=== PATIENT | male | born 1980 | race Caucasian/White ===

== ENCOUNTER 2019-09-04 09:16 | Observation (INO) | payer OTHER, SELFPAY ==
[2019-09-04] VITALS (9 sets, daily range): BP systolic 130–154; BP diastolic 84–104; PULSE 67–86; RESP 14–22; TEMP 36.6–37.2; O2SAT 97–100; BMI 30.2
--- NOTE | ~2019-09-04 | XR_ITS ---
EXAMINATION: XR chest 2V EXAM DATE: 09/04/2019 09:46 INDICATION: Mid chest pain. TECHNIQUE: Frontal and lateral projections of the chest obtained and reviewed. Comparison is made to prior examination from 09/18/2016. FINDINGS: The lungs are clear. There are no pleural effusions. The cardiomediastinal silhouette is within normal limits. There is no pneumothorax suspected. The bones and soft tissues are unremarkab le. IMPRESSION: Normal chest x-ray exam. Reviewed, dictated and finalized at location B. QUE REFINISHER IMPRESSION: Normal chest x-ray exam.
--- NOTE | ~2019-09-04 | NM_ITS ---
EXAMINATION: NM brian stress w perfusion DATE: 09/05/2019 10:45 INDICATION: Chest pain TECHNIQUE: Rest images were obtained following intravenous administration of 10.5 mCi Tc99m tetrofosm in (Myoview). The patient was infused intravenously with Lexiscan (Regadenoson). Then, 34.5 mCi Tc99m tetrofosmin (Myoview) was administered intravenously, and stress images were obtained in standard puckett pine position. Stress images were repeated in the prone position. Data was reconstructed into short a xis and horizontal and vertical long axis SPECT images. Gated SPECT images were also obtained. COMPARISON: None. FINDINGS: There is no definite reversible or fixed perfusion abnormality to suggest ischemia or infar ction. There is normal left ventricular chamber size, wall motion and ejection fraction. Left ventr icular ejection fraction measures 64%. IMPRESSION: 1. Normal myocardial perfusion at rest and during stress. 2. Left ventricular ejection fraction measuring 64%. Reviewed, dictated and finalized at location A. SHED YARN EXAMINER
--- NOTE | 2019-09-04 09:19 | ECG_ITS ---
Measurements Intervals [place] Rate: 72 P: 10 AL: 153 QRS: 41 QRSD: 111 T: 16 QT: 360 QTc: 397 Interpretive Statements SINUS RHYTHM INCOMPLETE RIGHT BUNDLE BRANCH BLOCK BORDERLINE ECG Electronically Signed On 09-04-2019 9:49:26 TUBE WRAPPER by Kristofer Dominguez D.O.
[2019-09-04 09:51] LABS: Basophils Percent Auto 0.5 % (0.2-1.2); Eosinophils Absolute Auto 0.1 K/mm3 (0-0.3); Eosinophils Percent Auto 1.8 % (0-4.4); Hematocrit 45.6 % (42.0-52.0); Hemoglobin 14.8 g/dL (14.0-18.0); Immature Granulocyte Absolute 0.03 K/mm3 (0.00-0.031); Immature Granulocyte Percent A 0.4 % (0-0.5); Lymphocytes Absolute Auto 2.15 K/mm3 (0.9-3.2); Lymphocytes Percent Auto 29.2 % (18.3-44.2); Mean Corpuscular HGB Conc 32.5 g/dl (32-36); Mean Corpuscular Hemoglobin 27.5 pg (26-34); Mean Corpuscular Volume 84.6 fl (80-100); Mean Platelet Volume 9.7 fl (7.4-10.4); Monocytes Absolute Auto 0.6 K/mm3 (0.1-0.6); Monocytes Percent Auto 7.6 % (2.6-8.5); Neutrophils Absolute Auto 4.5 K/mm3 (1.3-6.7); Neutrophils Percent Auto 60.5 % (45.5-73.1); Platelet Count Result 259 k/mm3 (150-375); Red Blood Count 5.39 M/mm3 (4.6-6.20); Red Cell Distribution Width 12.6 % (11.5-14.5); White Blood Count 7.4 K/mm3 (4.5-10.0)
--- NOTE | 2019-09-04 09:53 | ED.CHESTPAIN ---
HPI - Chest Pain General Chief Complaint: Shortness of Breath/Dyspnea Stated Complaint: SOB, CP X 3 DAYS Time Seen by Provider: 09/04/19 09:19 Source: patient and RN notes reviewed Mode of arrival: ambulatory Limitations: no limitations History of Present Illness HPI narrative: Pt is a 38 y/o male with a Hx of HTN, HLD, and DM II, who presents to the ED with c/o waxing and waning central chest pain starting 3 days ago. He notes that he has had nausea and SOB accompanying his pain, but denies any vomiting. Pt states that he recently quit smoking several months ago, but notes that he intermittently still smokes a few cigarettes per week. He notes that he hasn't taken any pain medications today for his symptoms. MD complaint: chest pain Onset (ago): day(s) (3) Timing of current episode: other (waxing and waning) Pain location: other (central chest) Associated symptoms: nausea and dyspnea Treatment prior to arrival: none Related Data Allergies Allergy/AdvReac Type Severity Reaction Status Date / Time No Known Allergies Allergy Verified 07/13/17 16:34 Review of Systems Review of Systems: All systems reviewed & are unremarkable except as noted in HPI and below Cardiovascular: Cardiovascular: Reports chest pain (central chest pain) Respiratory: Respiratory: Reports dyspnea Gastrointestinal: Gastrointestinal: Reports nausea and Denies vomiting PMFSH Past Medical History Medical History ADD (attention deficit disorder) Back pain Diabetes type 2, controlled GERD (gastroesophageal reflux disease) HLD (hyperlipidemia) HTN (hypertension) Otitis media Sinusitis Surgical History Surgical History H/O skin graft Social History Social History Smoking status: Current some day smoker Gender identity (if verbalized by the patient): Male Exam Narrative: Exam Narrative: APPEARANCE: No acute distress, nontoxic, resting in bed EYES: EOMI HEENT: Normocephalic, atraumatic, OMM RESPIRATORY: No respiratory distress Clear to auscultation bilaterally with no rhonchi wheezing or rales. CARDIOVASCULAR: Regular rate and rhythm without murmurs rubs or gallops. ABDOMINAL: Soft, nontender, nondistended, no rebound or guarding MUSCULOSKELETAl: Moves all extremities. No clubbing, cyanosis or edema. NEURO: Awake and alert. Following commands, speech normal, no focal deficits SKIN:: Warm, dry. No rashes lesions or abrasions PSYCHIATRIC: Normal affect/mood, Course Course Emergency Course: Patient states chest pain is resolved at this time Discussed with patient and family results of workup and diagnosis. Discussed need for admission. Patient and family understand and agree to current treatment plan Consultations Consultation #1: Discussed case with VINE PRUNER to Treating Plant PumperMojgan. [facility] Date: 09/04/19 Time: 11:38 Vital Signs Vital signs: Vital Signs Temperature 36.6 C 09/04/19 09:21 Pulse Rate 83 09/04/19 09:21 Respiratory Rate 18 09/04/19 09:21 Blood Pressure 145/94 H 09/04/19 09:21 Pulse Oximetry 98 09/04/19 09:21 Temperature 37.1 C 09/04/19 10:15 Pulse Rate 79 09/04/19 10:23 Respiratory Rate 22 H 09/04/19 10:15 Blood Pressure 136/100 H 09/04/19 10:15 Pulse Oximetry 99 09/04/19 10:23 MDM - Chest Pain Lab Data Result diagrams: 09/04/19 09:37 09/04/19 09:37 Labs: Lab Results 09/04/19 09/04/19 09/04/19 Range/Units 09:37 09:37 09:37 WBC 7.4 (4.5-10.0) K/mm3 RBC 5.39 (4.6-6.20) M/mm3 Hgb 14.8 (14.0-18.0) g/dL Hct 45.6 (42.0-52.0) % MCV 84.6 (80-100) fl MCH 27.5 (26-34) pg MCHC 32.5 (32-36) g/dl RDW 12.6 (11.5-14.5) % Plt Count 259 (150-375) k/mm3 MPV 9.7 (7.4-10.4) fl Immature Gran % (Auto) 0.4 (0-0.5) % Neut % (Auto) 60.5
[2019-09-04 10:02] LABS: INR 0.9; Prothrombin Time 12.3 Seconds (11.1-14.7)
[2019-09-04 10:03] LABS: Partial Thromboplastin Time 29.9 SECONDS (22.3-36.8)
[2019-09-04 10:26] LABS: D Dimer 0.27 ug/mL (<0.48)
[2019-09-04] MEDS: KETOROLAC 30 MG/ML VIAL (*BKC) IV PUSH (10:30)
[2019-09-04 10:31] LABS: Alanine Aminotransferase 29 U/L (4-50); Albumin Level 4.3 g/dL (3.5-5.1); Alkaline Phosphatase 81 U/L (38-126); Aspartate Amino Transferase 29 U/L (17-59); Bilirubin,Total 0.6 mg/dL (0.2-1.3); Blood Urea Nitrogen 15 mg/dL (9-20); Calcium 8.8 mg/dL (8.4-10.2); Carbon Dioxide 20 mmol/L (22-30); Chloride 103 mmol/L (98-107); Estimated CRCL calculation 124 ml/min; Estimated Glomerular Filt Rate > 60; Glucose 212 mg/dL (75-110); Potassium 4.1 mmol/L (3.4-5.0); Sodium 135 mmol/L (137-145); Troponin I < 0.012 ng/mL (0.000-0.034)
[2019-09-04] MEDS: ASPIRIN 81 MG CHEWABLE TABLET 324 MG PO (11:50)
[2019-09-04 13:23] LABS: Cholesterol 176 mg/dL (0-200); HDL Direct 25 mg/dL; Triglycerides 397 mg/dL (<150)
[2019-09-04 13:31] LABS: Troponin I < 0.012 ng/mL (0.000-0.034)
[2019-09-04 13:33] LABS: LDL Cholesterol Direct 88 mg/dL
--- NOTE | 2019-09-04 14:30 | PM.IMHP ---
H&P: HPI History of Present Illness Chief complaint: Chest Pain <Mojgan Joe APRN - Last Filed: 09/04/19 15:58> Narrative: José Miguel Snyder is a 38 year old male with a history of hyperlipidemia, hypertension and type 2 diabetes that presented to the emergency room for evaluation of chest discomfort, lightheadedness and shortness of breath. For the last 3 days he has had spells of lightheadedness with moderate to mild chest discomfort and shortness of breath. The lightheadedness comes randomly with associated nausea and a sensation that he needs to take in a deep breath. Prior to the lightheadedness he describes a sensation of body tingling and a chill sensation that lasts a few seconds. He describes the chest discomfort as a dull pressure throbbing sensation in the mid upper chest. The discomfort started 3 days ago. It waxes and wanes but never completely goes away. It has not kept him from sleeping. He does note that it does slightly get worse with exertion. The chest discomfort is associated with a headache that can last a few hours. At first he thought it was just a simple cold or the flu but his symptoms have not resolved. 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 <Mojgan Joe APRN - Last Filed: 09/04/19 15:58> Attending addendum: I have personally seen and examined the patient at bedside. Agree with above documentation and plan of care as outlined. Patient presents with numerous symptoms including cough/upper respiratory symptoms, intermittent lightheadedness, dizziness, waxing and waning chest pain occurring at rest occasion with activity and uncontrolled hypertension on presentation. Patient has ruled out for myocardial infarction with negative serial cardiac enzymes and unremarkable EKG without ischemic changes. Blood pressure elevated as he has not been taking lisinopril 20 mg daily. His primary care physician was contacted and they had not discontinued lisinopril as he originally thought. This has subsequently been restarted. Is feeling well this time, denies chest pain. States he feels better than he has in some time. Chest pain symptoms were worsening over the preceding 3 days prompting presentation. No syncope, lower extremity edema, orthopnea or PND. No bleeding. No focal weakness or balance. No falls. Examination: No apparent distress, alert and oriented x3, nonfocal neurologic examination, no JVD oral mucosa pink and moist Lungs clear to auscultation bilaterally no rales or wheezes. Respirations nonlabored, intermittent coughing with deep breathing noted. Abdominal exam was obese soft nontender nondistended positive breath sounds throughout Cardiac examination regular rate and rhythm normal S1-S2 no murmurs clicks gallops rubs S3 or S4 Lower extremities no edema clubbing or cyanosis extremities warm well perfused scars over right lower extremity Vascular carotid upstrokes 2+ radial pulses 2+ dorsalis pedis pulses 2+ equal Neurologic nonfocal cranial nerves 2-12 grossly intact Psychiatric: mood calm and appropriate although somewhat anxious Plan of care: Resume antihypertensives. Monitor BP. Observation overnight. NPO after midnight. Lexiscan nuclear perfusion stress test to assess for myocardial ischemia given chest pain, risk factors including hypertension, diabetes mellitus, dyslipidemia. Symptoms most likely related to uncontrolled hypertension, however, will assess for myocardial ischemia prior to discharge. Patient and verbalized understanding and agreed with plan of care. Very appreciative of plan as outlined. If stress test unremarkable patient will be discharged home in stable and improved condition to follow up with his primary care physician in the next 1-2 weeks. <Delmer Keene MD - Last Filed: 09/04/19 16:36> Review of Systems Constitutional: Constitutional: Reports chills, Reports headache(s) (Associated with chest discomfort
--- NOTE | 2019-09-04 14:42 | ECG_ITS ---
Measurements Intervals [place] Rate: 65 P: 4 AK: 158 QRS: 51 QRSD: 101 T: 14 QT: 383 QTc: 401 Interpretive Statements SINUS RHYTHM INCOMPLETE RIGHT BUNDLE BRANCH BLOCK BORDERLINE ECG Electronically Signed On 09-04-2019 14:35:16 THEOLOGY TEACHER by Kristofer Dominguez D.O.
[2019-09-04] MEDS: lisinopriL 20 MG TABLET PO (14:46)
[2019-09-04 16:04] LABS: Troponin I < 0.012 ng/mL (0.000-0.034)
--- NOTE | 2019-09-04 17:42 | ECG_ITS ---
Measurements Intervals [place] Rate: 68 P: -5 MA: 148 QRS: 49 QRSD: 100 T: 14 QT: 382 QTc: 407 Interpretive Statements SINUS RHYTHM INCOMPLETE RIGHT BUNDLE BRANCH BLOCK BORDERLINE ECG Electronically Signed On 09-04-2019 15:43:14 ELEVATOR ERECTOR HELPER by Kristofer Dominguez D.O.
[2019-09-04] MEDS: PRAVASTATIN SODIUM 10 MG TABLET PO (22:09)
[2019-09-05] VITALS: BP 136/89; PULSE 65; RESP 16; TEMP 36.9; O2SAT 99
[2019-09-05 02:00] VITALS: PULSE 76
[2019-09-05 04:00] VITALS: BP 134/70; PULSE 64; PULSE 67; RESP 13; TEMP 36.7; O2SAT 99
[2019-09-05 08:00] VITALS: BP 145/89; PULSE 70; RESP 14; O2SAT 100
--- NOTE | 2019-09-05 08:30 | EST_ITS ---
Patient Info Name: José Miguel Snyder Age: 38 years : 1980 Gender: Male Ht: 66 in Wt: 187 lbs BSA: 2.01 m2 Heart Rhythm: Sinus Rhythm Exam Date: 09/05/2019 8:39 AM Exam Location: [facility] Stress Patient Status: Inpatient Admit Date: 09/04/2019 Staff Ordering Physician: Mojgan Joe APRN Attending Provider: Iván Pina MD Nurse: Mojgan Joe, ANP, ACNP-BC Exam Type: CA stress brian w NM Study Info Indications R07.89 - Other chest pain A regadenoson stress test was performed. Summary 1. No abnormal ST/T wave changes with exercise. 2. No arrhythmias were observed during the examination. 3. No chest discomfort with stress test. 4. Please correlate with nuclear medicine images, reported separately. Protocol: Lexiscan Stress ECG Details Stage: REST Duration (min): 3 min : 29 sec HR (bpm): 71 SBP (mmHg): 128 DBP (mmHg): 85 Stage: REST Duration (min): 11 min : 23 sec HR (bpm): 78 SBP (mmHg): 128 DBP (mmHg): 85 Stage: STAGE 1 Duration (min): 0 min : 59 sec HR (bpm): 121 SBP (mmHg): 129 DBP (mmHg): 86 Stage: RECOVERY Duration (min): 1 min : 0 sec HR (bpm): 103 SBP (mmHg): 135 DBP (mmHg): 83 Stage: RECOVERY Duration (min): 2 min : 0 sec HR (bpm): 86 SBP (mmHg): 135 DBP (mmHg): 83 Stage: RECOVERY Duration (min): 3 min : 0 sec HR (bpm): 84 SBP (mmHg): 124 DBP (mmHg): 79 Stage: RECOVERY Duration (min): 3 min : 5 sec HR (bpm): 83 SBP (mmHg): 124 DBP (mmHg): 79 Rest HR: 78 bpm Peak HR: 124 bpm Rest Sys BP: 128 mmHg Peak Sys BP: 135 mmHg Max Pred HR: 180 bpm % Max Pred HR: 69 % Target HR: 153 bpm Max RPP: 16,740 bpm*mmHg Total Time: 1 min : 0 sec Rest Ray BP: 85 mmHg Peak Ray BP: 83 mmHg Total Dose: 0.4 mg Resting ECG Normal sinus rhythm - normal ECG. Stress ECG No abnormal ST/T wave changes with exercise. Arrhythmias No arrhythmias were observed during the examination. Report Signatures
[2019-09-05] MEDS: lisinopriL 20 MG TABLET PO (10:31)
[2019-09-05] MEDS: LORATADINE 10 MG TABLET PO (10:31)
[2019-09-05] MEDS: GLIMEPIRIDE 2 MG TABLET 4 MG PO (10:31)
[2019-09-05] MEDS: FENOFIBRATE 160 MG TABLET PO (10:31)
[2019-09-05] MEDS: ASPIRIN 81 MG CHEWABLE TABLET PO (10:32)
--- NOTE | 2019-09-05 11:48 | PM.DS ---
DS: Diagnosis Admitting Diagnosis Admitting Diagnosis: Other chest pain Discharge Diagnosis (1) Chest pain: Qualifiers: Chest pain type: other chest pain Qualified Code(s): R07.89 - Other chest pain Code(s): R07.9 - Chest pain, unspecified Status: Acute Assessment and Plan: Chest pain improved. Troponin negative x3 No acute EKG changes Lexiscan stress test negative for ischemia (2) HTN (hypertension): Qualifiers: Hypertension type: essential hypertension Qualified Code(s): I10 - Essential (primary) hypertension Code(s): I10 - Essential (primary) hypertension Status: Acute Assessment and Plan: Restarted on lisinopril 20 mg daily. Blood pressure significantly improved. (3) HLD (hyperlipidemia): Qualifiers: Hyperlipidemia type: mixed hyperlipidemia Qualified Code(s): E78.2 - Mixed hyperlipidemia Code(s): E78.5 - Hyperlipidemia, unspecified Status: Acute Assessment and Plan: Continue fenofibrate 160 mg daily. Continue pravastatin at 10 mg daily. DS: Summary Hospital Course Reason for hospitalization: Chest pain and dizziness Hospital Course: 38-year-old male with a history of hypertension, hyperlipidemia and type 2 diabetes that presented to the emergency room for evaluation for chest discomfort. The discomfort had been present for 3 days waxing and waning. The discomfort was associated with some shortness of breath which he described as a feeling of needing to take in a deeper breath. He also complained of some dizziness. Troponin negative x3. EKG unremarkable for any acute ST T wave abnormalities. He was given ketorolac in the emergency room with significant improvement of his chest discomfort. He was observed overnight. He had no chest discomfort in the morning. Denied shortness of breath. Still had lightheadedness when changing position from lying to sitting. He also felt that he had some sinus pressure. Lexiscan stress test was performed on 09/05/2019 that was negative for ischemia. Lisinopril 20 mg was restarted for his blood pressure. Blood pressure was significantly improved. He was discharged home in stable and pain-free condition. Status at Discharge Functional status at discharge: independent ambulation Overall status at discharge: patient is back to baseline Time Spent with Patient Time attestation: Total time spent providing and/or coordinating discharge services: Time spent: Greater than 30 minutes Exam Const: General: comfortable, no acute distress and anxious Nutritional Appearance: obese Orientation/consciousness: patient oriented x3 Limitations: no limitations HENMT: Head: normal to inspection, normocephalic and atraumatic Ears: hearing grossly normal bilaterally and external ears normal General nose exam: Normal external nose present, Normal nares present, No nasal discharge present and no epistaxis Mouth: Yes moist mucous membranes Eyes: General: appearance normal, both eyes and all related structures Sclera: sclerae normal Pupils: Equal, round and reactive pupils present Neck: Neck: supple and no JVD Chest: Chest palpation & inspection: normal inspection of the chest Resp: Effort & Inspection: normal respiratory effort, able to speak in complete sentences and Actively coughing Auscultation: clear to auscultation bilaterally Cardio: Jugular venous distension: no JVD Rate: regular rate Rhythm: regular rhythm Heart sounds: S1 normal heart sound present, S2 normal heart sound present and no murmurs Bruits: no abdominal aortic bruits and no carotid bruits Peripheral pulses: Peripheral pulses 2+ throughout GI: Inspection: normal to inspection Auscultation: normal bowel sounds Skin: General skin exam: normal color Neuro: General: patient oriented x3 Cranial nerves: Yes Equal
[2019-09-05 12:00] VITALS: BP 137/82; PULSE 66; PULSE 70; RESP 14; O2SAT 100
--- NOTE | 2019-09-05 12:06 | PC.NURSE ---
1205-pt given D/C orders and instructions. Questions answered and verbalized understanding. AOx4. Ambulated per request to waiting vehicle. No distress noted at time of departure.
== END 2019-09-05 12:05 | disposition home or self-care (01) ==
LOC: ANHED 11:53 → ANHCPC 12:05
PROVIDERS: Admitting Provider Specialist; Emergency Provider Emergency Medicine; Visit Provider Specialist
DX: R07.89 Other chest pain (principal); I10 Essential (primary) hypertension; E78.5 Hyperlipidemia, unspecified; E11.9 Type 2 diabetes mellitus without complications; F17.210 Nicotine dependence, cigarettes, uncomplicated; F17.290 Nicotine dependence, other tobacco product, uncomplicated; K21.9 Gastro-esophageal reflux disease without esophagitis; Z79.84 Long term (current) use of oral hypoglycemic drugs; Z79.899 Other long term (current) drug therapy
CPT/HCPCS: 36415; 71046; 78452; 80053; 80061; 84484; 85025; 85380; 85610; 85730; 93005; 93017; 96374; 99285; A9270; A9502; G0378; G0379; J1885; J2785

== ENCOUNTER 2019-09-06 09:01 | Emergency (ER) | payer OTHER, SELFPAY ==
--- NOTE | ~2019-09-06 | CT_ITS ---
EXAMINATION: CT brain wo con EXAM DATE: 09/06/2019 10:04 INDICATION: Dizziness and headache. TECHNIQUE: Spiral CT of the head was performed without contrast. Axial, coronal and sagittal images were reviewed. The dose-length product (DLP) for this examination was 605.33 mGy-cm. The exposure w as tailored according to patient size, and iterative reconstruction (ASIR) was used as additional dos e reduction technique. Comparison is made to prior examination from 10/10/2015. FINDINGS: There is no acute intraparenchymal hemorrhage. No evidence of intraparenchymal brain mass lesion. No evidence of acute infarction. There is no mass effect or midline shift. The ventricles are normal in size. There are no extra-axial collections. There are no acute calvarial fractures. T he orbits are unremarkable. Soft tissue is unremarkable. The visualized sinuses and mastoid air nga ls are well aerated. IMPRESSION: 1. Unremarkable head CT examination. Reviewed, dictated and finalized at location B. TAL PRINTER
[2019-09-06 09:00] VITALS: BP 134/89; PULSE 70; RESP 12; TEMP 36.6; O2SAT 98
[2019-09-06 09:29] LABS: Basophils Percent Auto 0.5 % (0.2-1.2); Eosinophils Absolute Auto 0.2 K/mm3 (0-0.3); Eosinophils Percent Auto 1.8 % (0-4.4); Hematocrit 48.6 % (42.0-52.0); Hemoglobin 15.7 g/dL (14.0-18.0); Immature Granulocyte Absolute 0.03 K/mm3 (0.00-0.031); Immature Granulocyte Percent A 0.4 % (0-0.5); Lymphocytes Absolute Auto 2.07 K/mm3 (0.9-3.2); Lymphocytes Percent Auto 25.1 % (18.3-44.2); Mean Corpuscular HGB Conc 32.3 g/dl (32-36); Mean Corpuscular Hemoglobin 27.4 pg (26-34); Mean Corpuscular Volume 84.8 fl (80-100); Mean Platelet Volume 9.9 fl (7.4-10.4); Monocytes Absolute Auto 0.7 K/mm3 (0.1-0.6); Monocytes Percent Auto 8.5 % (2.6-8.5); Neutrophils Absolute Auto 5.3 K/mm3 (1.3-6.7); Neutrophils Percent Auto 63.7 % (45.5-73.1); Platelet Count Result 268 k/mm3 (150-375); Red Blood Count 5.73 M/mm3 (4.6-6.20); Red Cell Distribution Width 12.8 % (11.5-14.5); White Blood Count 8.3 K/mm3 (4.5-10.0)
[2019-09-06 09:32] LABS: Add Urine Microscopic? YES; Appearance Urine Clear (Clear); Bilirubin Urine Negative (Negative); Blood Urine Negative (Negative); Color Urine Yellow (Yellow); Glucose Urine UA 3+ mg/dL (Negative); Ketones Urine Negative (Negative); Leukocyte Esterase Ur Negative LEU/UL (Negative); Mucus Urine Rare /lpf; Nitrate Urine Negative (Negative); Protein Urine Negative (Negative); RBC Urine 0-2 /hpf (0-2); Specific Grav Ur 1.028 (1.001-1.035); Urobilinogen Urine Negative mg/dL (<2.0); WBC Urine 0-3 /hpf
--- NOTE | 2019-09-06 09:39 | ED.GENADULT ---
HPI - General Adult General Chief complaint: Dizziness Stated complaint: dizzy Source: patient Mode of arrival: EMS Limitations: no limitations History of Present Illness HPI narrative: Patient is here because this morning when he woke up he felt dizzy when he stood, he has had this complaint since last Monday and [facility]. He states that he also took his blood sugar this morning and it was 50, but then when he read told the story it was 94. He states he did not eat anything but he did drink some iced tea with sugar and currently it is 156. He held his diabetic medicine because he was dizzy. He has not taken any of his medicine, his lisinopril or Claritin was ordered at discharge because he does not have it at home. He is also asking that we draw a hemoglobin A1c because he does not have the money to get it drawn outpatient. I explained to him that that will not help our management here today and we will not be doing that. He denies headache or fever. He does have cold symptoms that started approximately the same time as his dizziness. And he is complaining of fullness and ringing in his ears. Onset (ago): day(s) Location: head Radiation: non-radiation Severity: mild Exacerbating factors: movement Treatments prior to arrival: none Related Data Home Medications Medication Instructions Recorded Confirmed Steglatro 5 mg PO QAM 09/04/19 09/04/19 fenofibrate 160 mg PO DAILY 09/04/19 09/04/19 glimepiride 4 mg PO QAM 09/04/19 09/04/19 loratadine [Claritin] 10 mg PO DAILY 09/04/19 09/04/19 pravastatin 10 mg PO HS 09/04/19 09/04/19 ranitidine HCl [Zantac Maximum 150 mg PO DAILY 09/04/19 09/04/19 Strength] Allergies Allergy/AdvReac Type Severity Reaction Status Date / Time No Known Allergies Allergy Verified 09/06/19 11:08 Review of Systems Review of Systems: All systems reviewed & are unremarkable except as noted in HPI and below PMFSH Past Medical History Medical History ADD (attention deficit disorder) Back pain Diabetes type 2, controlled GERD (gastroesophageal reflux disease) HLD (hyperlipidemia) HTN (hypertension) Otitis media Sinusitis Surgical History Surgical History H/O skin graft Family History Family History Sibling Cerebral aneurysm Social History Social History Smoking status: Light tobacco smoker Tobacco type: cigarettes and e-cigarettes Second hand tobacco smoke exposure: Yes Gender identity (if verbalized by the patient): Male Exam Const: General: no acute distress and alert Orientation/consciousness: patient oriented x3 HENMT: Head: normal to inspection Ears: TM abnormal dull on the right Face and sinus: sinuses nontender Mouth: Yes Normal oral and palatal mucosa present Other: swelling of nasal mucosa on right. Eyes: Pupils: Equal, round and reactive pupils present EOM: EOMs intact bilaterally (C/o dizziness when EOM's tested.) Neck: Neck: no lymphadenopathy Resp: Effort & Inspection: normal respiratory effort Auscultation: clear to auscultation bilaterally Cardio: Rate: regular rate Rhythm: regular rhythm GI: GI Palp: Yes Soft to palpation Skin: General skin exam: normal color Rashes: no rashes Neuro: General: patient oriented x3, moves all extremities and no meningeal signs Course Course Emergency Course: Patient feels better after the meclizine. He is continuing to check his own blood sugar in the room, the most recent was 109. Vital Signs Vital signs: Vital Signs Temperature 36.6 C 09/06/19 09:00 Pulse Rate 70 09/06/19 09:00 Respiratory Rate 12 09/06/19 09:00 Blood Pressure 134/89 09/06/19 09:00 Pulse Oximetry 98 09/06/19 09:00 Temperature 36.6 C
[2019-09-06 09:42] LABS: Alanine Aminotransferase 31 U/L (4-50); Albumin Level 4.5 g/dL (3.5-5.1); Alkaline Phosphatase 92 U/L (38-126); Aspartate Amino Transferase 27 U/L (17-59); Bilirubin,Total 0.6 mg/dL (0.2-1.3); Blood Urea Nitrogen 15 mg/dL (9-20); Calcium 9.3 mg/dL (8.4-10.2); Carbon Dioxide 21 mmol/L (22-30); Chloride 102 mmol/L (98-107); Estimated Glomerular Filt Rate > 60; Glucose 156 mg/dL (75-110); Potassium 4.1 mmol/L (3.4-5.0); Sodium 138 mmol/L (137-145)
[2019-09-06] MEDS: SODIUM CHLORIDE 0.9% IV 1,000 ML 999 ML IV CONT (10:14)
[2019-09-06 11:18] VITALS: BP 128/88; PULSE 70; RESP 16; O2SAT 97
[2019-09-06] MEDS: MECLIZINE HCL 25 MG TABLET PO (11:45)
[2019-09-06 12:29] VITALS: BP 124/81; PULSE 61; RESP 16; O2SAT 100
--- NOTE | 2019-09-10 11:29 | PC.NURSE ---
1000ml NS completed infusion at 1200 06 Sep 2019
== END 2019-09-06 12:30 | disposition home or self-care (01) ==
PROVIDERS: Emergency Provider Emergency Medicine
DX: R42 Dizziness and giddiness (principal); J06.9 Acute upper respiratory infection, unspecified; E11.9 Type 2 diabetes mellitus without complications; K21.9 Gastro-esophageal reflux disease without esophagitis; E78.5 Hyperlipidemia, unspecified; I10 Essential (primary) hypertension; F17.210 Nicotine dependence, cigarettes, uncomplicated; Z79.84 Long term (current) use of oral hypoglycemic drugs
CPT/HCPCS: 36415; 70450; 80053; 81001; 85025; 96360; 96361; 99284; A9270; J7030

== ENCOUNTER 2020-07-10 11:38 | Emergency (ER) | payer OTHER, SELFPAY ==
[2020-07-10 11:46] VITALS: BP 140/91; PULSE 72; RESP 18; TEMP 37; O2SAT 99
--- NOTE | 2020-07-10 11:47 | ED.GENADULT ---
HPI - General Adult General Chief complaint: Extremity Injury, Upper Stated complaint: Shoulder Pain Time Seen by Provider: 07/10/20 11:47 Source: patient Mode of arrival: ambulatory Limitations: no limitations History of Present Illness HPI narrative: 39-year-old male patient presents to the [facility] with complaints of right shoulder pain and right upper back pain for the past week. Patient states about a week ago he took a nap was laying on his right shoulder and states that when he woke up he noticed he had some soreness to it and has progressed worse over the last week. Patient states he has been taking 800 mg of Motrin as well as using heat and ice to the area. Patient states he now has pain when trying to reach toward the the back. Denies any injury. Denies any bone pain. Patient states that does feel like a very tight muscle feeling. Related Data Home Medications Medication Instructions Recorded Confirmed empagliflozin [Jardiance] 10 mg PO TID 07/10/20 07/10/20 famotidine [Pepcid] 20 mg PO BID 07/10/20 07/10/20 fenofibrate 160 mg PO DAILY 07/10/20 07/10/20 glipizide [Glucotrol] 2.5 mg PO DAILY 07/10/20 07/10/20 lisinopril [Zestril] 20 mg PO BID 07/10/20 07/10/20 rosuvastatin [Crestor] 20 mg PO HS 07/10/20 07/10/20 Allergies Allergy/AdvReac Type Severity Reaction Status Date / Time No Known Allergies Allergy Verified 07/10/20 11:54 Review of Systems Review of Systems: Narrative: CONSTITUTIONAL: Denies fever, chills, or sweats. EYES: Denies visual changes, redness, or discharge. ENT: Denies rhinorrhea, congestion, sore throat, or otalgia. CARDIOVASCULAR: Denies chest pain, palpitations, or edema. RESPIRATORY: Denies cough or dyspnea. GASTROINTESTINAL: Denies abdominal pain, nausea, vomiting, or diarrhea. GENITOURINARY: Denies dysuria or hematuria. SKIN: Denies rash or itching. MUSCULOSKELETAL: Positive right shoulder and right upper back pain, denies joint pain, or myalgia. NEUROLOGIC: Denies headache, numbness, or weakness. PSYCHIATRIC: Denies anxiety or depression. [facility] Past Medical History Medical History (Updated 07/10/20 @ 12:02 by ZOILA Mora) ADD (attention deficit disorder) Back pain Diabetes type 2, controlled GERD (gastroesophageal reflux disease) HLD (hyperlipidemia) HTN (hypertension) Otitis media Sinusitis Surgical History Surgical History H/O skin graft Family History Family History Sibling Cerebral aneurysm Social History Social History Smoking status: Light tobacco smoker Tobacco type: cigarettes and e-cigarettes/vaping Second hand tobacco smoke exposure: Yes Gender identity (if verbalized by the patient): Male Comments At the time of my signature I agree with nursing past medical history, surgical, social, and family history. There is no relevant family history pertinent to the presenting complaint. Exam Narrative: Exam Narrative: GENERAL: Well-appearing, well-nourished, and in no acute distress. HEAD: Normocephalic, atraumatic. EYES: PERRLA and EOMI. ENT: Nares clear, no rhinorrhea or epistaxis. Mucous membranes moist. NECK: Supple. No lymphadenopathy CHEST: Clear to auscultation. No respiratory distress. HEART: Regular rate and rhythm. No murmur heard. Normal peripheral pulses. ABDOMEN: Soft, nontender, nondistended, normal active bowel sounds. EXTREMITIES: The R shoulder is without obvious asymmetry or deformity when compared to the L shoulder. No surface trauma, ecchymosis, crepitus. No bony deformity or prominence of the humeral head No erythema, warmth, swelling. no tenderness to palpation to clavicle, A to C joint, acromion, scapula or humeral head. No tenderness to palpation of the bicipital groove or soft tissues. No tenderness to palpation of the muscles of the sterncleidomasto
== END 2020-07-10 12:05 | disposition home or self-care (01) ==
PROVIDERS: Emergency Provider Nurse Practitioner Family; PCP Registered Nurse
DX: M62.830 Muscle spasm of back (principal); F17.210 Nicotine dependence, cigarettes, uncomplicated; E11.9 Type 2 diabetes mellitus without complications; K21.9 Gastro-esophageal reflux disease without esophagitis; E78.5 Hyperlipidemia, unspecified; I10 Essential (primary) hypertension; Z79.84 Long term (current) use of oral hypoglycemic drugs
CPT/HCPCS: 99213; G0463

== ENCOUNTER 2021-10-15 15:32 | Emergency (ER) | payer OTHER, SELFPAY ==
--- NOTE | ~2021-10-15 | CT_ITS ---
EXAMINATION: CT brain wo con EXAM DATE: 10/15/2021 17:32 INDICATION: Headache. TECHNIQUE: Spiral CT of the head was performed without contrast. Axial, coronal and sagittal images were reviewed. The dose-length product (DLP) for this examination was 605.33 mGy-cm. The exposure w as tailored according to patient size, and iterative reconstruction (ASIR) was used as additional dos e reduction technique. Comparison is made to prior examination from 09/06/2019. FINDINGS: There is no acute intraparenchymal hemorrhage. No evidence of intraparenchymal brain mass lesion. No evidence of acute infarction. There is no mass effect or midline shift. The ventricles are normal in size. There are no extra-axial collections. There are no acute calvarial fractures. T he orbits are unremarkable. Soft tissue is unremarkable. The visualized sinuses and mastoid air nga ls are well aerated. IMPRESSION: 1. Unremarkable head CT examination. Reviewed, dictated and finalized at location G.
[2021-10-15 15:47] VITALS: BP 146/95; PULSE 95; RESP 20; TEMP 37; O2SAT 99
[2021-10-15 16:35] VITALS: BP 134/99; PULSE 88; RESP 20; O2SAT 95
--- NOTE | 2021-10-15 17:19 | ED.HA ---
HPI - Headache General Chief Complaint: Headache Stated Complaint: headache, hypertension Time Seen by Provider: 10/15/21 16:50 History of Present Illness HPI Narrative: 40-year-old male presents the emergency room with acute onset of a headache, that began this morning. Headache is associated with dizziness and lightheadedness, and general feeling of not feeling well . Patient has a history of hypertension, for which she takes lisinopril daily. Patient states that he has not taken his lisinopril for 4 days. States that he recognized that his blood pressure was elevated earlier today at 150/100, he then called EMS and they checked his blood pressure at 148/99. Patient has since taken his blood pressure medicine approximately 2 hours ago, and his blood pressure is now 134/99. Patient states he is feeling better, and his dizziness and headache are resolving. Patient also reports frequently getting up in the night to go to the bathroom, and changes to his vision over the last 6 months. Related Data Home Medications Medication Instructions Recorded Confirmed empagliflozin [Jardiance] 10 mg PO TID 07/10/20 07/10/20 famotidine [Pepcid] 20 mg PO BID 07/10/20 07/10/20 fenofibrate 160 mg PO DAILY 07/10/20 07/10/20 glipizide [Glucotrol] 2.5 mg PO DAILY 07/10/20 07/10/20 lisinopril [Zestril] 20 mg PO BID 07/10/20 07/10/20 rosuvastatin [Crestor] 20 mg PO HS 07/10/20 07/10/20 Allergies Allergy/AdvReac Type Severity Reaction Status Date / Time No Known Allergies Allergy Verified 10/15/21 16:35 Review of Systems Review of Systems: CONSTITUTIONAL: Denies fever, chills, or sweats. EYES: Denies visual changes, redness, or discharge. ENT: Denies rhinorrhea, congestion, sore throat, or otalgia. CARDIOVASCULAR: Denies chest pain, palpitations, or edema. RESPIRATORY: Denies cough or dyspnea. GASTROINTESTINAL: Denies abdominal pain, nausea, vomiting, or diarrhea. GENITOURINARY: Denies dysuria or hematuria. SKIN: Denies rash or itching. MUSCULOSKELETAL: Denies back pain, joint pain, or myalgia. NEUROLOGIC: Reports headache, dizziness PSYCHIATRIC: Denies anxiety or depression. PMFSH Past Medical History Medical History (Updated 10/15/21 @ 18:05 by Dave Alberto APRN) ADD (attention deficit disorder) Back pain Diabetes type 2, controlled GERD (gastroesophageal reflux disease) HLD (hyperlipidemia) HTN (hypertension) Otitis media Sinusitis Surgical History Surgical History H/O skin graft Family History Family History Sibling Cerebral aneurysm Social History Social History Smoking status: Light tobacco smoker Tobacco type: cigarettes and e-cigarettes/vaping Second hand tobacco smoke exposure: Yes Gender identity (if verbalized by the patient): Male Exam Narrative: GENERAL: Well-appearing, well-nourished, and in no acute distress. HEAD: Normocephalic, atraumatic. EYES: PERRLA and EOMI. ENT: Nares clear, no rhinorrhea or epistaxis. Mucous membranes moist. NECK: Supple. No adenopathy or masses. No carotid bruits or JVD CHEST: Clear to auscultation. No respiratory distress. No wheezes rales or rhonchi HEART: Regular rate and rhythm. No murmur heard. Normal peripheral pulses. ABDOMEN: Soft, nontender, nondistended, normal active bowel sounds. EXTREMITIES: Normal range of motion. No edema. SKIN: Warm, dry, no rash. NEURO: No focal deficits. Alert and oriented x3. PSYCH: Normal mood and affect. Course Vital Signs Vital signs: Vital Signs Temperature 37.0 C 10/15/21 15:47 Pulse Rate 95 10/15/21 15:47 Respiratory Rate 20 10/15/21 15:47 Blood Pressure 146/95 H 10/15/21 15:47 Pulse Oximetry 99 10/15/21 15:47 Temperature 37.0 C 10/15/21 15:47 Pulse Rate 88 10/15/21 16:35 Respiratory Rate 20 10/15/21 16:35
[2021-10-15 17:46] LABS: Basophils Percent Auto 0.5 % (0.2-1.2); Eosinophils Absolute Auto 0.1 K/mm3 (0-0.3); Hematocrit 46.5 % (42.0-52.0); Hemoglobin 15.8 g/dL (14.0-18.0); Immature Granulocyte Absolute 0.03 K/mm3 (0.00-0.031); Immature Granulocyte Percent A 0.4 % (0-0.5); Lymphocytes Absolute Auto 2.65 K/mm3 (0.9-3.2); Lymphocytes Percent Auto 32.2 % (18.3-44.2); Mean Corpuscular Hemoglobin 28.3 pg (26-34); Mean Corpuscular Volume 83.2 fl (80-100); Mean Platelet Volume 9.5 fl (7.4-10.4); Monocytes Absolute Auto 0.6 K/mm3 (0.1-0.6); Monocytes Percent Auto 6.9 % (2.6-8.5); Neutrophils Absolute Auto 4.9 K/mm3 (1.3-6.7); Platelet Count Result 252 k/mm3 (150-375); Red Blood Count 5.59 M/mm3 (4.6-6.20); Red Cell Distribution Width 12.4 % (11.5-14.5); White Blood Count 8.2 K/mm3 (4.5-10.0)
[2021-10-15 17:51] LABS: Add Urine Microscopic? YES; Appearance Urine Clear (Clear); Bacteria Urine Trace /hpf; Bilirubin Urine Negative (Negative); Blood Urine Negative (Negative); Color Urine Yellow (Yellow); Glucose Urine UA 3+ mg/dL (Negative); Ketones Urine Trace mg/dL (Negative); Leukocyte Esterase Ur Negative LEU/UL (Negative); Mucus Urine Rare /lpf; Nitrate Urine Negative (Negative); Protein Urine Negative (Negative); RBC Urine 0-2 /hpf (0-2); Squamous Epithelial Cell Urine Occasional /hpf (Few); Urobilinogen Urine Negative mg/dL (<2.0); WBC Urine 0-3 /hpf
[2021-10-15 17:55] LABS: Alanine Aminotransferase 28 U/L (4-50); Albumin Level 4.4 g/dL (3.5-5.1); Alkaline Phosphatase 108 U/L (38-126); Anion Gap 11 mmol/L (8-16); Aspartate Amino Transferase 25 U/L (17-59); Bilirubin,Total 0.5 mg/dL (0.2-1.3); Blood Urea Nitrogen 12 mg/dL (9-20); Carbon Dioxide 23 mmol/L (22-30); Chloride 100 mmol/L (98-107); Estimated CRCL calculation 134 ml/min; Estimated Glomerular Filt Rate > 60; Glucose 243 mg/dL (65-110); Potassium 3.8 mmol/L (3.4-5.0); Sodium 134 mmol/L (137-145)
== END 2021-10-15 18:18 | disposition home or self-care (01) ==
PROVIDERS: Emergency Provider Nurse Practitioner Family; PCP Registered Nurse
DX: R51.9 Headache, unspecified (principal); I10 Essential (primary) hypertension; T46.4X6A Underdosing of angiotensin-converting-enzyme inhibitors, initial encounter; E11.9 Type 2 diabetes mellitus without complications; E78.5 Hyperlipidemia, unspecified; K21.9 Gastro-esophageal reflux disease without esophagitis; Z79.84 Long term (current) use of oral hypoglycemic drugs; F17.210 Nicotine dependence, cigarettes, uncomplicated; F17.290 Nicotine dependence, other tobacco product, uncomplicated
CPT/HCPCS: 36415; 70450; 80053; 81001; 85025; 99284

== ENCOUNTER 2021-11-29 14:04 | Emergency (ER) | payer OTHER, SELFPAY ==
[2021-11-29 14:43] VITALS: BP 141/78; PULSE 72; RESP 17; TEMP 36.8; O2SAT 98
[2021-11-29 14:53] LABS: Basophils Percent Auto 0.5 % (0.2-1.2); Eosinophils Absolute Auto 0.1 K/mm3 (0-0.3); Eosinophils Percent Auto 0.8 % (0-4.4); Hematocrit 45.7 % (42.0-52.0); Hemoglobin 14.9 g/dL (14.0-18.0); Immature Granulocyte Absolute 0.02 K/mm3 (0.00-0.031); Immature Granulocyte Percent A 0.3 % (0-0.5); Lymphocytes Absolute Auto 2.09 K/mm3 (0.9-3.2); Lymphocytes Percent Auto 26.1 % (18.3-44.2); Mean Corpuscular HGB Conc 32.6 g/dl (32-36); Mean Corpuscular Hemoglobin 28.1 pg (26-34); Mean Corpuscular Volume 86.2 fl (80-100); Mean Platelet Volume 9.3 fl (7.4-10.4); Monocytes Absolute Auto 0.5 K/mm3 (0.1-0.6); Monocytes Percent Auto 5.9 % (2.6-8.5); Neutrophils Absolute Auto 5.3 K/mm3 (1.3-6.7); Neutrophils Percent Auto 66.4 % (45.5-73.1); Platelet Count Result 249 k/mm3 (150-375); Red Cell Distribution Width 12.9 % (11.5-14.5)
[2021-11-29 15:04] LABS: Alanine Aminotransferase 25 U/L (6-50); Albumin Level 4.5 g/dL (3.5-5.1); Alkaline Phosphatase 86 U/L (38-126); Anion Gap 9 mmol/L (8-16); Aspartate Amino Transferase 26 U/L (17-59); Bilirubin,Total 0.6 mg/dL (0.2-1.3); Blood Urea Nitrogen 12 mg/dL (9-20); Carbon Dioxide 22 mmol/L (22-30); Chloride 105 mmol/L (98-107); Estimated CRCL calculation 126 ml/min; Estimated Glomerular Filt Rate > 60; Glucose 152 mg/dL (65-110); Lipase 216 U/L (23-300); Potassium 3.6 mmol/L (3.4-5.0); Sodium 136 mmol/L (137-145)
[2021-11-29] MEDS: SODIUM CHLORIDE 0.9% IV 1,000 ML 999 ML IV CONT (17:49)
--- NOTE | 2021-11-29 17:55 | ED.NAVMDI ---
HPI - Nausea/Vomiting/Diarrhea General Chief complaint: Nausea/Vomiting/Diarrhea Stated complaint: n/v/d Time Seen by Provider: 11/29/21 17:04 History of Present Illness HPI Narrative: 41-year-old male presents emergency room for evaluation of diarrhea and abdominal cramps. Patient states that he has had multiple episodes of diarrhea today, and is not feeling well . Patient denies any abdominal pain, fever, nausea or vomiting. Patient denies back pain or chest pain. Related Data Home Medications Medication Instructions Recorded Confirmed empagliflozin [Jardiance] 10 mg PO TID 07/10/20 07/10/20 famotidine [Pepcid] 20 mg PO BID 07/10/20 07/10/20 fenofibrate 160 mg PO DAILY 07/10/20 07/10/20 glipizide [Glucotrol] 2.5 mg PO DAILY 07/10/20 07/10/20 lisinopril [Zestril] 20 mg PO BID 07/10/20 07/10/20 rosuvastatin [Crestor] 20 mg PO HS 07/10/20 07/10/20 Allergies Allergy/AdvReac Type Severity Reaction Status Date / Time No Known Allergies Allergy Verified 10/15/21 16:35 Review of Systems Review of Systems: CONSTITUTIONAL: Denies fever, chills, or sweats. EYES: Denies visual changes, redness, or discharge. ENT: Denies rhinorrhea, congestion, sore throat, or otalgia. CARDIOVASCULAR: Denies chest pain, palpitations, or edema. RESPIRATORY: Denies cough or dyspnea. GASTROINTESTINAL: Reports diarrhea GENITOURINARY: Denies dysuria or hematuria. SKIN: Denies rash or itching. MUSCULOSKELETAL: Denies back pain, joint pain, or myalgia. NEUROLOGIC: Denies headache, numbness, dizziness, or weakness. PSYCHIATRIC: Denies anxiety or depression. [facility] Past Medical History Medical History (Updated 11/29/21 @ 18:57 by Dave Alberto APRN) ADD (attention deficit disorder) Back pain Diabetes type 2, controlled GERD (gastroesophageal reflux disease) HLD (hyperlipidemia) HTN (hypertension) Otitis media Sinusitis Surgical History Surgical History H/O skin graft Family History Family History Sibling Cerebral aneurysm Social History Social History Smoking status: Light tobacco smoker Tobacco type: cigarettes and e-cigarettes/vaping Second hand tobacco smoke exposure: Yes Gender identity (if verbalized by the patient): Male Exam Narrative: GENERAL: Well-appearing, well-nourished, and in no acute distress. HEAD: Normocephalic, atraumatic. EYES: PERRLA and EOMI. CHEST: Clear to auscultation. No respiratory distress. No wheezes rales or rhonchi HEART: Regular rate and rhythm. No murmur heard. Normal peripheral pulses. ABDOMEN: Soft, nontender, obese, normal active bowel sounds. EXTREMITIES: Normal range of motion. No edema. SKIN: Warm, dry, no rash. NEURO: No focal deficits. Alert and oriented x3. PSYCH: Normal mood and affect. Course Vital Signs Vital signs: Vital Signs Temperature 36.8 C 11/29/21 14:43 Pulse Rate 72 11/29/21 14:43 Respiratory Rate 17 11/29/21 14:43 Blood Pressure 141/78 H 11/29/21 14:43 Pulse Oximetry 98 11/29/21 14:43 Temperature 36.8 C 11/29/21 14:43 Pulse Rate 72 11/29/21 14:43 Respiratory Rate 17 11/29/21 14:43 Blood Pressure 141/78 H 11/29/21 14:43 Pulse Oximetry 98 11/29/21 14:43 MDM - Nausea/Vomiting/Diarrhea MDM Narrative Medical decision making narrative: 41-year-old male presents the emergency room for cute onset of diarrhea. Patient states that he had had multiple episodes of diarrhea today, with complaint was some mild abdominal cramping. CBC and CMP were largely unremarkable. Lipase was normal. Patient states that he feels much better following a liter of fluid and some Bentyl. Patient does have a prescription for Bentyl at the pharmacy awaiting him. Differential Diagnosis Differential diagnosis: Likely food poisoning and gastroenteritis Medical Records Attest
[2021-11-29 18:28] LABS: Appearance Urine Clear (Clear); Bilirubin Urine Negative (Negative); Blood Urine Negative (Negative); Color Urine Yellow (Yellow); Glucose Urine UA Negative (Negative); Ketones Urine Trace mg/dL (Negative); Leukocyte Esterase Ur Negative LEU/UL (Negative); Nitrate Urine Negative (Negative); Protein Urine Negative (Negative); Specific Grav Ur 1.025 (1.001-1.035); Urobilinogen Urine 0.2 mg/dL (<2.0); pH Urine 5.5 (5.0-9.0)
[2021-11-29 18:31] LABS: Mucus Urine Rare /lpf; RBC Urine 0-2 /hpf (0-2); Squamous Epithelial Cell Urine Occasional /hpf (Few); WBC Urine 0-3 /hpf
[2021-11-29 18:32] LABS: Add Urine Microscopic? YES
[2021-11-29] MEDS: DICYCLOMINE HCL INJ 20 MG/2 ML VIAL IM (18:45)
[2021-11-29 19:40] VITALS: BP 127/87; PULSE 54; RESP 20; O2SAT 97
== END 2021-11-29 19:46 | disposition home or self-care (01) ==
PROVIDERS: Emergency Medicine; Emergency Provider Nurse Practitioner Family; PCP Registered Nurse
DX: K52.9 Noninfective gastroenteritis and colitis, unspecified (principal); E11.9 Type 2 diabetes mellitus without complications; K21.9 Gastro-esophageal reflux disease without esophagitis; E78.5 Hyperlipidemia, unspecified; I10 Essential (primary) hypertension; F17.210 Nicotine dependence, cigarettes, uncomplicated; F17.290 Nicotine dependence, other tobacco product, uncomplicated; Z79.84 Long term (current) use of oral hypoglycemic drugs
CPT/HCPCS: 36415; 80053; 81001; 83690; 85025; 96360; 96372; 99283; J0500; J7030

== ENCOUNTER 2022-01-22 12:48 | Emergency (ER) | payer OTHER, SELFPAY ==
[2022-01-22 13:03] VITALS: BP 139/91; PULSE 67; RESP 16; TEMP 37; O2SAT 99
--- NOTE | 2022-01-22 13:12 | ED.UPPEXIN ---
HPI - Extremity Injury (Upper) General Chief Complaint: Extremity Injury, Upper Stated Complaint: right shoulder pain Time Seen by Provider: 01/22/22 13:10 Source: patient Mode of arrival: ambulatory Limitations: no limitations History of Present Illness HPI narrative: Mr. Snyder is a 41-year-old male patient presenting to the clinic today with complaints of right shoulder pain x5 days. He reports that he woke up in the middle of the night with this pain. States the pain is to the shoulder and radiates down his right arm. States that he also has a knot in his right shoulder. No known injury. Has been taking 800 mg of ibuprofen without relief Related Data Home Medications Medication Instructions Recorded Confirmed famotidine 20 mg tablet (Pepcid) 20 mg PO BID 07/10/20 07/10/20 glipizide 5 mg tablet (Glucotrol) 2.5 mg PO DAILY 07/10/20 07/10/20 lisinopril 20 mg tablet (Zestril) 20 mg PO BID 07/10/20 07/10/20 Allergies Allergy/AdvReac Type Severity Reaction Status Date / Time No Known Allergies Allergy Verified 10/15/21 16:35 Review of Systems Review of Systems: Pertinent positives per HPI. Patient denies any fever, chills, rash, headache, visual changes, dizziness, cough, runny nose, sore throat, shortness of breath, chest pain, palpitations, nausea, vomiting, diarrhea, constipation, abdominal pain, or any urinary issues. [facility] Past Medical History Medical History ADD (attention deficit disorder) Back pain Diabetes type 2, controlled GERD (gastroesophageal reflux disease) HLD (hyperlipidemia) HTN (hypertension) Otitis media Sinusitis Surgical History Surgical History H/O skin graft Family History Family History Sibling Cerebral aneurysm Social History Social History Smoking status: Light tobacco smoker Tobacco type: cigarettes and e-cigarettes/vaping Second hand tobacco smoke exposure: Yes Gender identity (if verbalized by the patient): Male Comments At the time of my signature, I reviewed and agree with the nursing past medical, surgical, social, and family history. There is no relevant family history pertinent to the patient complaint. Exam Narrative: General: Well-developed, well nourished, in no apparent distress Head: Normocephalic, atraumatic. Cardio: Regular rate and rhythm, s1 and s2 normal, no murmur appreciated. Resp: Clear to auscultation bilaterally, no rhonchi, rales, wheezing or rubs. Musculoskeletal: No deformity, tenderness to palpation over the trapezius musculature of the right shoulder with pain radiating down to the right arm, pain with empty can and full can no weakness, limited range of motion due to pain muscle strength strong and equal, peripheral pulse strong, no edema, no cyanosis, normal gait and station Course Course Emergency Course: Portions of this record may have been created with voice recognition software. Level of Care: Express Care Visit Vital Signs Vital signs: Vital Signs Temperature 37.0 C 01/22/22 13:03 Pulse Rate 67 01/22/22 13:03 Respiratory Rate 16 01/22/22 13:03 Blood Pressure 139/91 H 01/22/22 13:03 Pulse Oximetry 99 01/22/22 13:03 Oxygen Delivery Room Air 01/22/22 13:03 Temperature 37.0 C 01/22/22 13:03 Pulse Rate 67 01/22/22 13:03 Respiratory Rate 16 01/22/22 13:03 Blood Pressure 139/91 H 01/22/22 13:03 Pulse Oximetry 99 01/22/22 13:03 Oxygen Delivery Room Air 01/22/22 13:03 Vital signs reviewed MDM - Extremity Injury (Upper) MDM Narrative Medical decision making narrative: At the time of visit patient is sitting on the exam table tearful. I suspect the patient has a strain of the cervical portion of the trapezius musculature. Suppo
== END 2022-01-22 13:25 | disposition home or self-care (01) ==
PROVIDERS: Emergency Provider Nurse Practitioner Family; PCP Registered Nurse
DX: S16.1XXA Strain of muscle, fascia and tendon at neck level, initial encounter (principal); X58.XXXA Exposure to other specified factors, initial encounter; E11.9 Type 2 diabetes mellitus without complications; E78.5 Hyperlipidemia, unspecified; I10 Essential (primary) hypertension; K21.9 Gastro-esophageal reflux disease without esophagitis
CPT/HCPCS: 99213; G0463

== ENCOUNTER 2022-02-25 15:56 | Outpatient (CLI) | payer OTHER, SELFPAY ==
--- NOTE | ~2022-02-25 | MR_ITS ---
EXAMINATION: MR cervical spine wo con DATE: 02/25/2022 16:40 INDICATION: Cervical radiculopathy TECHNIQUE: Magnetic resonance imaging (MRI) of the cervical spine was performed without intravenous c ontrast. Sequences included sagittal T2-weighted FSE, sagittal T2-weighted FS FSE, sagittal T1-weight ed FSE, axial MERGE and axial T2-weighted FSE. COMPARISON: None FINDINGS: Straightening of the normal cervical lordosis which is likely positional although could be seen with muscle spasm. No spondylolisthesis or facet subluxation. Vertebral body heights are normal. Normal ma rrow signal throughout. Mild disc height loss at C3-C4, C5-C6 and C6-C7, minimal at C7-T1. Cord signa l intensity is normal. Cervical soft tissues are unremarkable. The following disc levels are specific ally discussed: C2-C3: The disc does not extend beyond the endplate margin. There is no uncovertebral joint osteoarth ritis. There is mild bilateral facet joint osteoarthritis. There is no neural foraminal stenosis. The re is no central canal stenosis. C3-C4: Disc is mildly bulging, eccentric to the left. There is mild left uncovertebral joint osteoart hritis. There is mild right and mild to moderate left facet joint osteoarthritis. There is mild left neural foraminal stenosis. There is minimal central canal stenosis. C4-C5: The disc does not extend beyond the endplate margin. There is mild left and moderate right unc overtebral joint osteoarthritis. There is mild bilateral facet joint osteoarthritis. There is mild bi lateral, right greater than left neural foraminal stenosis. There is no central canal stenosis. C5-C6: Disc is bulging. There is mild right and moderate left uncovertebral joint osteoarthritis. The re is mild bilateral facet joint osteoarthritis. There is mild bilateral neural foraminal stenosis. T here is mild central canal stenosis. C6-C7: Disc is bulging with annular fissure and small right foraminal zone disc extrusion with disc m aterial extending up to 4 mm cephalad to the level of the inferior endplate of C6. There is mild bila teral uncovertebral joint osteoarthritis. There is mild bilateral facet joint osteoarthritis. There i s mild right neural foraminal stenosis. There is no central canal stenosis. C7-T1: Disc is bulging. There is mild bilateral uncovertebral joint osteoarthritis. There is mild noah ateral facet joint osteoarthritis. There is moderate right and mild left neural foraminal stenosis. T here is mild central canal stenosis. IMPRESSION: 1. Mild cervical spondylosis. Reviewed, dictated and finalized at location A.
== END 2022-02-25 15:57 | disposition home or self-care (01) ==
PROVIDERS: PCP Registered Nurse; Visit Provider Registered Nurse
DX: M47.22 Other spondylosis with radiculopathy, cervical region (principal)
CPT/HCPCS: 72141

== ENCOUNTER 2023-05-22 18:05 | Emergency (ER) | payer OTHER, SELFPAY ==
[2023-05-22 18:14] VITALS: BP 114/85; PULSE 94; RESP 16; TEMP 36.8; O2SAT 98
--- NOTE | 2023-05-22 18:50 | ED.GENADULT ---
HPI - General Adult General Chief complaint: Upper Respiratory Infection Stated complaint: Sinus/Sore Throat Time Seen by Provider: 05/22/23 18:30 Source: patient, RN notes reviewed and old records reviewed Mode of arrival: ambulatory Limitations: no limitations History of Present Illness HPI narrative: 42 Year old male presents to [facility] with complaints of 4-5 day history of sore throat, sinus congestion,drainage, cough and fevers. Patient reports that he has taken some Tylenol for his discomfort and fever. Patient reports that daughter is also ill at this time. Patient reports history of some past sinus infections ans ear infections. MD complaint: sore throat Onset (ago): day(s) (4-5 days) Severity: moderate Quality: aching Exacerbating factors: other (swallowing) Treatments prior to arrival: other (Tylenol) Related Data Home Medications Medication Instructions Recorded Confirmed famotidine 20 mg tablet (Pepcid) 20 mg PO BID 07/10/20 07/10/20 glipizide 5 mg tablet (Glucotrol) 2.5 mg PO DAILY 07/10/20 07/10/20 lisinopril 20 mg tablet (Zestril) 20 mg PO BID 07/10/20 07/10/20 Allergies Allergy/AdvReac Type Severity Reaction Status Date / Time No Known Allergies Allergy Verified 10/15/21 16:35 Review of Systems Review of Systems: CONSTITUTIONAL: Reports malaise, chills, sweats, or fever. EYES: Denies visual changes, redness, or discharge. ENT: Reports rhinorrhea, congestion, sinus pain, otalgia and sore throat. CARDIOVASCULAR: Denies chest pain, palpitations, or edema. RESPIRATORY: Reports cough.? Denies dyspnea. GASTROINTESTINAL: Denies abdominal pain, nausea, vomiting, diarrhea SKIN: Denies rash or itching. MUSCULOSKELETAL: Denies myalgia. NEUROLOGIC: Denies headache. All systems reviewed & are unremarkable except as noted in HPI and below PMFSH Past Medical History Medical History ADD (attention deficit disorder) Back pain Diabetes type 2, controlled GERD (gastroesophageal reflux disease) HLD (hyperlipidemia) HTN (hypertension) Otitis media Sinusitis Surgical History Surgical History H/O skin graft Family History Family History Sibling Cerebral aneurysm Social History Social History Smoking status: Light tobacco smoker Tobacco type: cigarettes and e-cigarettes/vaping Second hand tobacco smoke exposure: Yes Gender identity (if verbalized by the patient): Male Comments At time of signature, agree with nursing past medical, surgical, social and family history. There is no relevant family history pertinent to the presenting complaint Exam Narrative: GENERAL: Well-appearing, well-nourished, and in no acute distress. HEAD: Normocephalic EYES: PERRLA, conjunctivae clear ENT: Nares clear, turbinates edematous and erythematous, clear yellowish discharge. Mucous membranes moist. TM pearly cadet with dull light reflex bilaterally; no tragal tenderness. Oropharynx erythematous without lesions. Tonsils red enlarged and without exudate, no drooling, no hoarseness, no trismus, uvula midline. NECK: Supple. lymphadenopathy CHEST: Clear to auscultation, breath sounds equal. No wheezing, rhonchi, rales, or stridor. No respiratory distress, speaks in full sentences.SAO2 98% on room air, cough noted HEART: Regular rate and rhythm. No murmur heard. SKIN: Warm, dry, no rash. NEURO: Alert and oriented x3. PSYCH: Normal mood and affect Course Course Emergency Course: Patient is aware of diagnosis, understands and agrees to treatment plan.? Anticipatory guidance given.? Patient agrees to follow-up as directed and is aware of reasons to seek care at the emergency department. Portions of this record may have been created with voice
== END 2023-05-22 18:58 | disposition home or self-care (01) ==
PROVIDERS: Emergency Provider Registered Nurse; PCP Registered Nurse
DX: J02.0 Streptococcal pharyngitis (principal); Z20.822 Contact with and (suspected) exposure to COVID-19; F17.210 Nicotine dependence, cigarettes, uncomplicated; F17.290 Nicotine dependence, other tobacco product, uncomplicated; E11.9 Type 2 diabetes mellitus without complications; K21.9 Gastro-esophageal reflux disease without esophagitis; E78.5 Hyperlipidemia, unspecified; I10 Essential (primary) hypertension
CPT/HCPCS: 87426; 87804; 87880; 99213; C9803; G0463

== ENCOUNTER 2023-11-22 09:35 | Emergency (ER) | payer OTHER, SELFPAY ==
--- NOTE | ~2023-11-22 | XR_ITS ---
EXAMINATION: XR lumbar spine 2-3V DATE: 11/22/2023 10:05 INDICATION: Left-sided back pain with radiculopathy. TECHNIQUE: 3 views of lumbar spine were obtained. COMPARISON: None. FINDINGS: Bone alignment is normal. There is mild chronic anterior wedging of T11 vertebral body. The re is mildly decreased disc height at L1-L2. There is multilevel mild facet joint osteoarthritis. IMPRESSION: 1. Mild lumbar spondylosis. Reviewed, dictated and finalized at location A. IMPRESSION: 1. Mild lumbar spondylosis.
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
[2023-11-22 09:48] VITALS: BP 134/96; PULSE 85; RESP 16; TEMP 36.8; O2SAT 100
== END 2023-11-22 10:30 | disposition home or self-care (01) ==
PROVIDERS: Emergency Provider Nurse Practitioner Family; PCP Registered Nurse
DX: M47.816 Spondylosis without myelopathy or radiculopathy, lumbar region (principal); M54.42 Lumbago with sciatica, left side; F17.210 Nicotine dependence, cigarettes, uncomplicated; F17.290 Nicotine dependence, other tobacco product, uncomplicated; E11.9 Type 2 diabetes mellitus without complications; Z79.84 Long term (current) use of oral hypoglycemic drugs; K21.9 Gastro-esophageal reflux disease without esophagitis; E78.5 Hyperlipidemia, unspecified; I10 Essential (primary) hypertension
CPT/HCPCS: 72100; 99213; G0463